=== PATIENT | male | born 1970 | race Asian ===

== ENCOUNTER 2020-12-18 01:27 | Inpatient (IN) | payer BC ==
[~2020-12-18] VITALS: Ht 172.7 cm; Wt 94.2 kg
[2020-12-18] MEDS ORDERED: METOPROLOL 1 MG/ML, 5ML IVPush PRN (02:00)
[2020-12-18] MEDS ORDERED: ASPIRIN 81 MG TABLET CHEW PO ONE (02:00)
[2020-12-18] MEDS ORDERED: ASPIRIN 81 MG TABLET CHEW ONE (02:03)
[2020-12-18] MEDS ORDERED: METOPROLOL 1 MG/ML, 5ML ONE (02:04)
[2020-12-18] MEDS ORDERED: ONDANSETRON 2MG/ML, 2ML ONE (02:05)
[2020-12-18] MEDS ORDERED: MORPHINE SULFATE 4 MG/ML, 1ML ONE ×2 (02:05→03:33)
[2020-12-18 02:10] LABS: BASOPHILS % (AUTO) 1 % (0-1); EOSINOPHILS % (AUTO) 3 % (1-7); LYMPHOCYTES % (AUTO) 34 % (22-44); MEAN CORPUSCULAR HEMOGLOBIN 20.1 pg (27.5-34.5); MEAN CORPUSCULAR HGB CONC 31.9 g/dL (33.2-36.2); MEAN PLATELET VOLUME 8.8 fL (7.4-10.4); MONOCYTES % (AUTO) 7 % (2-9); NEUTROPHILS % (AUTO) 55 % (42-75); PLATELET COUNT 181 x10^3/uL (130-400); RED BLOOD COUNT 7.82 x10^6/uL (4.38-5.82); RED CELL DISTRIBUTION WIDTH 14.9 % (9.4-14.8)
[2020-12-18 02:13] LABS: MD NO
[2020-12-18] MEDS: MORPHINE SULFATE 4 MG/ML, 1ML IVPush PRN ×2 (02:16→03:37)
[2020-12-18 02:21] LABS: ALANINE AMINOTRANSFERASE 42 U/L (12-78); ALBUMIN 4.1 g/dL (3.4-5.0); ANION GAP 9 mmol/L (5-15); CALCIUM 8.8 mg/dL (8.5-10.1); CHLORIDE 103 mmol/L (98-107); CREATININE 0.99 mg/dL (0.7-1.3)
[2020-12-18 02:26] LABS: ALKALINE PHOSPHATASE 119 U/L (45-117); BILIRUBIN,TOTAL 0.4 mg/dL (0.2-1.0); TOTAL PROTEIN 8.4 g/dL (6.4-8.2); TROPONIN I 0.017 ng/mL (0.000-0.045)
[2020-12-18] MEDS ORDERED: ONDANSETRON 2MG/ML, 2ML IVPush ONE (02:30)
[2020-12-18] MEDS ORDERED: NITROGLYCERIN SINGLE TAB 0.4 MG SL ONE (02:42)
[2020-12-18] MEDS ORDERED: NITROGLYCERIN SINGLE TAB 0.4 MG SL PRN (03:00)
--- NOTE | 2020-12-18 03:18 | NUR ---
Pt to ER with c/o chest pain. Pt states yesterday morning he started having left arm pain. This morining he was awoken from sleep with chest pain. Pt came to ER with chest heaviness, tighness and pain into jaw and left arm. EKG done, pt on monitor, IV placed and labs sent. Pt with HTN. Pt medicated per order for pain and HTN. Pt continues to have intermittent CP. Pt with no diaphoresis. Pt denies SOB and no nausea. Pt has slight decrease in BP after Metoprolol, with steady pain. Pt had decrease in BP and CP after 1 SL NTG. Pt with no ectopy on monitor. Repeat EKG done. Pt with improvements in pain, but continues to come and go. EDP aware.
[2020-12-18] MEDS ORDERED: ONDANSETRON 2MG/ML, 2ML IVPush PRN ×3 (03:30→06:00)
[2020-12-18] MEDS ORDERED: MORPHINE SULFATE 4 MG/ML, 1ML IVPush PRN ×2 (03:30→04:47)
[2020-12-18] MEDS ORDERED: METF500T17 PO (03:52)
[2020-12-18] MEDS ORDERED: LISI20TA21 PO (03:52)
--- NOTE | 2020-12-18 03:53 | NUR ---
Pt medicated with morphine per order. Pt states relief down to 01/31. Pt remains A&O, no ectopy on monitor. Pt p/w/d. Report called to Emma GONZALES. Pt ready to go to rm [id number]
[2020-12-18 04:32] VITALS: BP 151/99
[2020-12-18] MEDS ORDERED: NITROGLYCERIN 0.4 MG BOTTLE (25 TABS) SL PRN (05:00)
[2020-12-18] MEDS ORDERED: NITROGLYCERIN 0.4 MG/SPRAY SL PRN (05:00)
[2020-12-18] MEDS ORDERED: NITROGLYCERIN OINT 2%, 1GM TP ONE (05:10)
[2020-12-18] MEDS ORDERED: morphine SULFATE 10 MG/ML, 1ML ONE (05:11)
[2020-12-18 05:13] VITALS: BP 166/120
[2020-12-18] MEDS: NITROGLYCERIN OINT 2%, 1GM TP SCH ×4 (05:14→22:08)
[2020-12-18] MEDS: morphine SULFATE 10 MG/ML, 1ML IVPush PRN ×2 (05:14→11:48)
[2020-12-18 06:17] LABS: TROPONIN I 0.025 ng/mL (0.000-0.045)
[2020-12-18] MEDS ORDERED: POTASSIUM CHLORIDE 20 MEQ in SODIUM CHLORIDE 0.9% 250 ML IV ONE (06:30)
[2020-12-18] MEDS ORDERED: ACETAMINOPHEN 325 MG TABLET PO PRN (06:30)
[2020-12-18] MEDS ORDERED: ENALAPRILAT 1.25 MG/ML, 2ML IVPush PRN (06:30)
[2020-12-18] MEDS ORDERED: POTASSIUM CHLORIDE 20 MEQ TAB.ER.PRT PO ONE (06:30)
[2020-12-18 07:46] LABS: LDL/HDL RATIO 2.3 (0.5-3.0)
[2020-12-18] MEDS: LISINOPRIL 20 MG TABLET PO SCH ×2 (08:01→20:34)
[2020-12-18] MEDS: INSULIN LISPRO 100 UNITS/ML, PEN SQ-INSULIN SCH ×4 (08:02→20:35)
[2020-12-18 09:53] VITALS: BP 127/85
[2020-12-18 10:53] LABS: TROPONIN I 0.137 ng/mL (0.000-0.045)
[2020-12-18] MEDS: SODIUM CHLORIDE 0.9% 1,000 ML IV SCH ×4 (11:00→22:08)
[2020-12-18] MEDS ORDERED: SODIUM CHLORIDE 0.9% 1,000 ML IV SCH (11:30)
[2020-12-18] MEDS ORDERED: VERAPAMIL 2.5 MG/ML, 2ML ONE (13:05)
[2020-12-18] MEDS ORDERED: TICAGRELOR 90 MG TABLET ONE (13:05)
[2020-12-18] MEDS ORDERED: BIVALIRUDIN 250 MG ONE (13:05)
[2020-12-18] MEDS ORDERED: LIDOCAINE 2%, 20ML ONE (13:05)
[2020-12-18] MEDS ORDERED: FENTANYL PF 100 MCG/2ML ONE (13:05)
[2020-12-18] MEDS ORDERED: HEPARIN 1,000 UNITS/ML, 10ML ONE (13:05)
[2020-12-18] MEDS ORDERED: MIDAZOLAM 1 MG/ML, 5ML ONE (13:05)
[2020-12-18] MEDS: CARVEDILOL 6.25 MG TABLET PO SCH (17:07)
[2020-12-18 19:57] VITALS: BP 106/70
[2020-12-18 20:31] VITALS: BP 104/67
[2020-12-18] MEDS: ATORVASTATIN 40 MG TABLET PO SCH (20:34)
[2020-12-18] MEDS ORDERED: INSULIN GLARGINE 100 UNITS/ML, PEN SQ-INSULIN SCH (21:00)
[2020-12-19] MEDS: SODIUM CHLORIDE 0.9% 1,000 ML IV SCH ×3 (00:21→05:44)
[2020-12-19 01:01] VITALS: BP 114/71
[2020-12-19] MEDS: NITROGLYCERIN OINT 2%, 1GM TP SCH ×2 (04:19→08:15)
[2020-12-19] MEDS ORDERED: SENNA/DOCUSATE TABLET PO PRN (05:30)
[2020-12-19 05:37] LABS: BASOPHILS % (AUTO) 1 % (0-1); EOSINOPHILS % (AUTO) 2 % (1-7); LYMPHOCYTES % (AUTO) 23 % (22-44); MEAN CORPUSCULAR HGB CONC 31.8 g/dL (33.2-36.2); MEAN PLATELET VOLUME 8.9 fL (7.4-10.4); MONOCYTES % (AUTO) 8 % (2-9); NEUTROPHILS % (AUTO) 66 % (42-75); PLATELET COUNT 179 x10^3/uL (130-400); RED CELL DISTRIBUTION WIDTH 14.8 % (9.4-14.8)
[2020-12-19 05:38] LABS: MD NO
[2020-12-19] MEDS: CARVEDILOL 6.25 MG TABLET PO SCH ×2 (05:39→16:53)
[2020-12-19] MEDS: PANTOPRAZOLE 40MG TABLET PO SCH (05:39)
[2020-12-19 05:44] LABS: ANION GAP 10 mmol/L (5-15); CALCIUM 8.4 mg/dL (8.5-10.1); CHLORIDE 106 mmol/L (98-107); CREATININE 0.84 mg/dL (0.7-1.3)
[2020-12-19] MEDS ORDERED: ASPIRIN 325 MG TABLET EC PO SCH (06:00)
[2020-12-19 07:24] VITALS: BP 111/73
[2020-12-19] MEDS: LISINOPRIL 20 MG TABLET PO SCH ×2 (08:14→20:17)
[2020-12-19] MEDS: INSULIN LISPRO 100 UNITS/ML, PEN SQ-INSULIN SCH (08:14)
[2020-12-19] MEDS ORDERED: POTASSIUM CHLORIDE 20 MEQ TAB.ER.PRT PO ONE (09:30)
[2020-12-19 13:24] VITALS: BP 127/90
[2020-12-19] MEDS: ATORVASTATIN 40 MG TABLET PO SCH (20:18)
[2020-12-19 20:19] VITALS: BP 108/71
[2020-12-20 02:44] VITALS: BP 114/79
[2020-12-20] MEDS ORDERED: ASPIRIN 81 MG TABLET CHEW PO SCH (06:00)
[2020-12-20] MEDS: CARVEDILOL 6.25 MG TABLET PO SCH (06:17)
[2020-12-20] MEDS: PANTOPRAZOLE 40MG TABLET PO SCH (06:18)
[2020-12-20 06:32] LABS: BASOPHILS % (AUTO) 0 % (0-1); EOSINOPHILS % (AUTO) 3 % (1-7); LYMPHOCYTES % (AUTO) 25 % (22-44); MEAN CORPUSCULAR HEMOGLOBIN 19.9 pg (27.5-34.5); MEAN CORPUSCULAR HGB CONC 31.8 g/dL (33.2-36.2); MEAN PLATELET VOLUME 9.4 fL (7.4-10.4); MONOCYTES % (AUTO) 9 % (2-9); NEUTROPHILS % (AUTO) 64 % (42-75); PLATELET COUNT 189 x10^3/uL (130-400); RED BLOOD COUNT 6.72 x10^6/uL (4.38-5.82); RED CELL DISTRIBUTION WIDTH 14.5 % (9.4-14.8)
[2020-12-20 06:33] LABS: MD NO
[2020-12-20 06:45] LABS: ANION GAP 9 mmol/L (5-15); CALCIUM 8.3 mg/dL (8.5-10.1); CHLORIDE 105 mmol/L (98-107)
[2020-12-20 06:46] LABS: CREATININE 0.67 mg/dL (0.7-1.3)
[2020-12-20 07:47] VITALS: BP 127/91
[2020-12-20] MEDS ORDERED: ASPI-963 PO (08:24)
[2020-12-20] MEDS ORDERED: LISI-170 PO (08:24)
[2020-12-20] MEDS ORDERED: ATOR40TA78 PO (08:24)
[2020-12-20] MEDS ORDERED: GLIP5TAB10 PO (08:24)
[2020-12-20] MEDS ORDERED: CARV6.2512 PO (08:24)
[2020-12-20] MEDS ORDERED: PANT40TA6 PO (08:24)
[2020-12-20 09:38] VITALS: BP_SYST 103; BP_SYST 119; BP_SYST 129; BP_DIAS 70; BP_DIAS 85; BP_DIAS 91
[2020-12-20] MEDS: LISINOPRIL 20 MG TABLET PO SCH (09:41)
[2020-12-20 13:50] VITALS: BP 114/80
== END 2020-12-20 17:01 | disposition home or self-care (01) | DRG 303 ==
LOC: ED 03:26 → EDIP 04:00 → OBSVTOIN 04:00 → INTOOBSV 04:00 → 5SO 04:18
PROVIDERS: ADMIT Family Medicine; ATTEND Internal Medicine
DX: I25.110 Atherosclerotic heart disease of native coronary artery with unstable angina pectoris (principal); I42.9 Cardiomyopathy, unspecified; E11.65 Type 2 diabetes mellitus with hyperglycemia; D56.9 Thalassemia, unspecified; E66.9 Obesity, unspecified; E78.5 Hyperlipidemia, unspecified; E87.6 Hypokalemia; I10 Essential (primary) hypertension; I16.0 Hypertensive urgency; N20.0 Calculus of kidney; Z68.31 Body mass index [BMI] 31.0-31.9, adult; Z79.4 Long term (current) use of insulin; Z79.899 Other long term (current) drug therapy; Z82.49 Family history of ischemic heart disease and other diseases of the circulatory system; Z87.442 Personal history of urinary calculi; Z87.891 Personal history of nicotine dependence
CPT/HCPCS: 36415; 93458; 96374; 96375; 96376; 99285; J3490; 71045; 80048; 80053; 80061; 82962; 83036; 83735; 83880; 84443; 84484; 85025; 93005; 93306; 99156; C1769; C1894; G0378; J0583; J1644; J2250; J2405; J3010; J3480; J1815; J2270; J7030; J7050; Q9967